=== PATIENT | male | born 1960 | race Caucasian/White ===

== ENCOUNTER 2022-12-24 07:48 | Day surgery (SDC) | payer BC, OTHER ==
[2022-12-22 14:02] VITALS: BMI 38.2
[~2022-12-24 07:48] MED LIST: Fluorouracil 100 MG, EPINEPHrine 0.3 MG in Ophthalmic Irrigation Solution 500 ML IRR SCH; Midazolam HCl 2 mg/2 ml Vial ONE; fentaNYL 50 mcg/mL 1 mL Vial ONE
[2022-12-24] MEDS ORDERED: Cyclopentolate 1% Opth Drop 2 ML BOT ONE (08:41)
[2022-12-24] MEDS ORDERED: Phenylephrine 2.5% Ophth Soln 5 ML BOT ONE (08:41)
[2022-12-24] MEDS ORDERED: Triamcinolone 40 MG/ML VIAL ONE (11:04)
[2022-12-24] MEDS ORDERED: PROPOFOL 200 MG/20 ML VIAL ONE (11:04)
[2022-12-24] MEDS ORDERED: Lidocaine 4% PF 5 ML AMP ONE (11:04)
[2022-12-24] MEDS ORDERED: Bupivacaine 0.75% 10 ML VIAL ONE (11:04)
[2022-12-24] MEDS ORDERED: Lidocaine 1% PF 5 ML VIAL ONE (11:04)
[2022-12-24] MEDS ORDERED: CEFAZOLIN 1 GM VIAL ONE (11:04)
== END 2022-12-24 13:31 | disposition home or self-care (01) ==
LOC: SDC 07:48
PROVIDERS: ATTEND Ophthalmology Retina Specialist
PROC: 08NE3ZZ Release Right Retina, Percutaneous Approach (ICD-10-PCS; principal; 2022-12-24)
PROC: 08T43ZZ Resection of Right Vitreous, Percutaneous Approach (ICD-10-PCS; principal; 2022-12-24)
DX: H33.41 Traction detachment of retina, right eye (principal); I10 Essential (primary) hypertension; Z79.84 Long term (current) use of oral hypoglycemic drugs; Z79.899 Other long term (current) drug therapy; Z98.41 Cataract extraction status, right eye; Z98.42 Cataract extraction status, left eye; Z96.1 Presence of intraocular lens
CPT/HCPCS: 67025; J0171; J0690; J2250; J2704; J3010; J3301; J3490; J9190